=== PATIENT | male | born 1940 | race Caucasian/White ===

== ENCOUNTER 2023-05-12 14:28 | Emergency (ER) | payer OTHER ==
[2023-05-12 14:39] VITALS: TEMP 97.6
[2023-05-12 15:19] VITALS: RESP 18
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
[2023-05-12] MEDS ORDERED: MORPHINE SULFATE 4 MG/ML SYRINGE IVP STA (16:38)
[2023-05-12 17:17] LABS: Basophils % (A) 0 %; Eosinophils # (A) 0.1 k/uL (0-0.7); Eosinophils % (A) 1 %; HGB 16.7 gm/dL (13.0-17.5); Lymphocytes # (A) 0.9 k/uL (1.0-4.8); Lymphocytes % (A) 9 %; MCH 31.8 pg (25.0-35.0); MCHC 33.5 g/dL (31.0-37.0); MCV 94.8 fL (80.0-100.0); Monocytes # (A) 0.4 k/uL (0-1.0); Monocytes % (A) 4 %; Neutrophils # (A) 9.2 k/uL (1.3-7.7); Neutrophils % (A) 86 %; RBC 5.27 m/uL (4.30-5.90); RDW 13.6 % (11.5-15.5); WBC 10.7 k/uL (3.8-10.6)
[2023-05-12 17:32] LABS: ALT 24 U/L (4-49); AST 37 U/L (17-59); African American GFR (CKD) >90 (>60 ml/min/1.73 sqM); Albumin 4.2 g/dL (3.5-5.0); Alkaline Phosphatase 73 U/L (38-126); Anion Gap 4 mmol/L; Blood Urea Nitrogen 19 mg/dL (9-20); Calcium 9.1 mg/dL (8.4-10.2); Carbon Dioxide 30 mmol/L (22-30); Chloride 104 mmol/L (98-107); Glucose 103 mg/dL (74-99); Non-African American GFR(CKD) 82 (>60 ml/min/1.73 sqM); Potassium 4.5 mmol/L (3.5-5.1); Sodium 138 mmol/L (137-145); Total Bilirubin 0.7 mg/dL (0.2-1.3); Total Protein 7.1 g/dL (6.3-8.2)
[2023-05-12 17:34] LABS: INR 0.9 (<1.2)
[2023-05-12 17:35] LABS: Partial Thromboplastin Time 20.9 sec (22.0-30.0); Prothrombin Time 9.7 sec (9.0-12.0)
[2023-05-12 17:50] LABS: Platelet Count 95 k/uL (150-450)
--- NOTE | 2023-05-12 18:17 | XR ---
EXAMINATION TYPE: XR chest 2V DATE OF EXAM: 05/12/2023 COMPARISON: NONE HISTORY: Shortness of breath TECHNIQUE: Frontal and lateral views of the chest are obtained. FINDINGS: Scattered senescent parenchymal changes noted. No evidence for infiltrate. No evidence for atelectasis. Heart size is stable. Mediastinal structures are stable and grossly unremarkable. No evidence for hilar prominence. Degenerative changes dorsal spine. IMPRESSION: 1. No evidence for acute pulmonary disease.
--- NOTE | 2023-05-12 18:18 | XR ---
EXAMINATION TYPE: XR pelvis AP view DATE OF EXAM: 05/12/2023 CLINICAL HISTORY: pain TECHNIQUE: Single view the pelvis is submitted. FINDINGS: No evidence for fracture, dislocation or bony lesion. Joint spaces are well-preserved. S I joints appear symmetric. IMPRESSION: 1. No acute fracture or dislocation seen. ICD 10 NO FRACTURE, INITIAL EVALUATION
--- NOTE | 2023-05-12 18:19 | XR ---
EXAMINATION TYPE: XR elbow complete LT DATE OF EXAM: 05/12/2023 CLINICAL HISTORY: pain TECHNIQUE: Frontal, lateral and oblique images of the left elbow are obtained. COMPARISON: None. FINDINGS: There is no acute fracture/dislocation evident of the elbow. No abnormal fat pad signs ar e seen. Moderate degenerative narrowing. The overlying soft tissue appears unremarkable. IMPRESSION: There is no acute fracture or dislocation of the elbow. ICD 10 NO FRACTURE, INITIAL EVALUATION
--- NOTE | 2023-05-12 18:20 | XR ---
EXAMINATION TYPE: XR humerus LT DATE OF EXAM: 05/12/2023 CLINICAL HISTORY: pain TECHNIQUE: Frontal and lateral images of the left humerus are obtained. COMPARISON: None. FINDINGS: Postoperative changes of rotator cuff repair. There is no acute fracture/dislocation evide nt. The joint spaces appear within normal limits. The overlying soft tissue appears unremarkable. IMPRESSION: There is no acute fracture or dislocation. ICD 10 NO FRACTURE, INITIAL EVALUATION
--- NOTE | 2023-05-12 18:21 | XR ---
EXAMINATION TYPE: XR forearm LT DATE OF EXAM: 05/12/2023 CLINICAL HISTORY: pain TECHNIQUE: Frontal and lateral images of the left forearm are obtained. COMPARISON: None. FINDINGS: Minimally comminuted and minimally displaced and slightly angulated fracture involving the distal third of the left ulnar diaphysis. The joint spaces appear within normal limits. The overlying soft tissues. No additional fractures evident at this time. IMPRESSION: Ulnar fracture as noted.
[2023-05-12 19:07] VITALS: BP 151/82; PULSE 87
== END 2023-05-12 19:07 | disposition other institution (70) ==
LOC: EC 14:28
DX: S06.6XAA Traumatic subarachnoid hemorrhage with loss of consciousness status unknown, initial encounter (principal); I10 Essential (primary) hypertension; Z86.73 Personal history of transient ischemic attack (TIA), and cerebral infarction without residual deficits; Z88.0 Allergy status to penicillin; Z79.01 Long term (current) use of anticoagulants; V49.40XA Driver injured in collision with unspecified motor vehicles in traffic accident, initial encounter
CPT/HCPCS: 36415; 93005; 86900; 86901; 80053; 85025; 85610; 85730; 86850; 72170; 73060; 73080; 73090; 71046; 72125; 70450; 99285; 96374; J2270